=== PATIENT | male | born 1965 | race Caucasian/White ===

== ENCOUNTER 2018-03-28 16:57 | Emergency (ER) | payer BC ==
[2018-03-28 17:26] VITALS: BP 157/93; PULSE 85; RESP 16; TEMP 98.5
[2018-03-28] MEDS ORDERED: DIPH,PERTUS(ACELL)TETVAC-LF 0.5 ML VIAL IM ONE (17:40)
[2018-03-28] MEDS ORDERED: LIDOCAINE 1%-EPI 1:100,000 30 ML VIAL SQ STA (17:42)
--- NOTE | 2018-03-28 18:08 | CT ---
EXAMINATION TYPE: CT brain wo con DATE OF EXAM: 03/28/2018 COMPARISON: NONE HISTORY: Frontal laceration. Hit with board today. CT DLP: 1080.3 mGycm. Automated Exposure Control for Dose Reduction was Utilized. TECHNIQUE: CT scan of the head is performed without contrast. FINDINGS: A frontal large laceration is seen with subcutaneous emphysema and a small degree of overly ing soft tissue swelling. There is no acute intracranial hemorrhage, mass effect, or midline shift i dentified. The ventricles and sulci are symmetrically mildly prominent compatible with mild age-rela mello volume loss. Few scattered areas of hypoattenuation are seen within the subcortical and periventr icular white matter, likely on the basis of chronic microangiopathy. The globes are intact and the vi sualized sinuses are clear. IMPRESSION: No acute intracranial process. Frontal laceration with right frontal subcutaneous emphys campos and soft tissue swelling.
--- NOTE | 2018-03-28 18:11 | ED ---
General Adult HPI - General Source: patient, RN notes reviewed Mode of arrival: wheelchair Limitations: no limitations <Roman Cook - Last Filed: 03/28/18 19:58> <Kristy Aldana - Last Filed: 03/28/18 20:33> - General Chief complaint: Wound/Laceration Stated complaint: Head Laceration Time Seen by Provider: 03/28/18 17:32 - History of Present Illness Initial comments: 52-year-old male presented to the emergency room today with a chief complaint of a laceration to the forehead. Patient states that he was working when a large bore fell down from the bar and hit him striking him on the forehead causing laceration. He states unsure of his tetanus status. States his visual loss conscious. He denies any headache. He denies any other complaints or symptoms. Patient denies any recent fever, chills, shortness of breath, chest pain, back pain, abdominal pain, nausea or vomiting, numbness or tingling, headaches or visual changes, or any other complaints. (Roman Cook) - Related Data Previous Rx's Medication Instructions Recorded Cephalexin [Keflex] 500 mg PO Q12HR #14 cap 03/28/18 Allergies Allergy/AdvReac Type Severity Reaction Status Date / Time No Known Allergies Allergy Verified 03/28/18 17:57 Review of Systems ROS Other: All systems not noted in ROS Statement are negative. <Roman Cook - Last Filed: 03/28/18 19:58> ROS Other: All systems not noted in ROS Statement are negative. <Kristy Aldana - Last Filed: 03/28/18 20:33> ROS Statement: Those systems with pertinent positive or pertinent negative responses have been documented in the HPI. Past Medical History Past Medical History: Hypertension History of Any Multi-Drug Resistant Organisms: None Reported Past Surgical History: No Surgical Hx Reported Past Psychological History: No Psychological Hx Reported Smoking Status: Never smoker Past Alcohol Use History: None Reported Past Drug Use History: Marijuana <Roman Cook - Last Filed: 03/28/18 19:58> General Exam Limitations: no limitations <Roman Cook - Last Filed: 03/28/18 19:58> - General Exam Comments Initial Comments: General: The patient is awake and alert, in no distress, and does not appear acutely ill. Eye: Pupils are equal, round and reactive to light. Extra-ocular movements are intact. No nystagmus. There is normal conjunctiva bilaterally. No signs of icterus. Ears, nose, mouth and throat: There are moist mucous membranes and no oral lesions. Neck: The neck is supple, there is no tenderness or JVD. Cardiovascular: There is a regular rate and rhythm. No murmur, rub or gallop is appreciated. Respiratory: Lungs are clear to auscultation, respirations are non-labored, breath sounds are equal. No wheezes, stridor, rales, or rhonchi. Musculoskeletal: Normal ROM, no tenderness. Sensation intact. Neurological: A&O x 3. CN II-XII intact, There are no obvious motor or sensory deficits. Coordination appears grossly intact. Speech is normal. Skin: Patient does have a laceration to the top of foreign. There is no active bleeding. Psychiatric: Cooperative, appropriate mood & affect, normal judgment. (Roman Cook) Vital Signs 03/28/18 17:24 Temperature 98.5 F Pulse Rate 85 Respiratory 16 Rate Blood Pressure 157/93 O2 Sat by Pulse 97 Oximetry Procedures - Laceration Laceration #1 Consent Obtained: verbal consent Time Out Performed: Yes Indication: laceration Site: scalp, face Size (cm): 13 Description: linear, clean Depth: simple, single layer Sedation/Analgesia: none Anesthetic Used: lidocaine 1%, with epi Anesthesia Technique: local infiltration Amount (mls): 20 Pre-repair: wound explored, irrigated extensively Type of Sutures: nylon, vicryl Size of Sutures: 4-0, 5-0 Number of Sutures: 6 (3 subQ, 6 simple interrupted, 8 evaristo) Technique: simple, interrupted Patient Tolerated Procedure: well, no complications <Kristy Aldana - Last Filed: 03/28/18 20:33> Medical Decision Making <Roman Cook - Last Filed: 03/28/18 19:58> <Kristy Aldana - Last Filed: 03/28/18 20:33> - Medical Decision Making Patient's CT of the head is reviewed and does show evidence for soft tissue injury with subcutaneous emphysema. No other acute abnormality. Results were discussed with the patient. His tetanus is been updated here the emergency room. The laceration was cleaned heavily with saline irrigated and closed with both evaristo and sutures. Patient will be started on a antibiotic to cover for infection prophylactically. Patient is advised to return in one week to have sutures removed. Advised return for any other concerns. (Roman Cook) Disposition Is patient prescribed a controlled substance at d/c from ED?: No Time of Disposition: 19:59 <Roman Cook - Last Filed: 03/28/18 19:58> <Kristy Aldana - Last Filed: 03/28/18 20:33> Clinical Impression: Laceration, Head injury Disposition: HOME SELF-CARE Condition: Good Instructions: Laceration (ED) Additional Instructions: Please return to the emergency room in 8-10 days to have sutures removed. Please watch for any signs of infection which may include increased pain, swelling, redness, fever or chills. Please return to emergency room for any signs of infection do occur. Please use clean soap and water over the area to prevent scabbing over your stitches. Please leave wound covered for the first 24-48 hours and then leave wound open to air. Please return to the emergency room for any other concerns. Prescriptions: Cephalexin [Keflex] 500 mg PO Q12HR #14 cap Referrals: Delfin Garcia MD [Primary Care Provider] - 1-2 days
== END 2018-03-28 20:25 | disposition home or self-care (01) ==
LOC: EC 16:57
DX: S01.01XA Laceration without foreign body of scalp, initial encounter (principal); T79.7XXA Traumatic subcutaneous emphysema, initial encounter; I10 Essential (primary) hypertension; Z23 Encounter for immunization; W20.8XXA Other cause of strike by thrown, projected or falling object, initial encounter; Y92.69 Other specified industrial and construction area as the place of occurrence of the external cause; Y99.0 Civilian activity done for income or pay
CPT/HCPCS: 12005; 70450; 90471; 90715; 99283

== ENCOUNTER → 2021-11-28 | Outpatient (CLI) | payer OTHER ==
--- NOTE | 2021-11-28 18:33 | CONS ---
CONSULTATION DATE OF SERVICE: 11/28/2021 This 56-year-old gentleman has been evaluated in [facility] for possible obstructive sleep apnea-hypopnea syndrome. HISTORY OF PRESENT ILLNESS/SLEEP-WAKE EVALUATION: Patient's usual sleep schedule on weekdays is from 10 p.m. to 5 a.m. and on weekends from 10 or 11 p.m. to 6 or 7 a.m. Usually no problems with falling asleep. No TV in bedroom. The patient usually sleeps on the side position. He snores and wakes up from sleep two times with nocturia. In the morning the patient wakes up tired. He usually does not take naps. [place] Sleepiness Scale is 1. No history of hypnagogic hallucinations, sleep paralysis or cataplexy. PAST MEDICAL HISTORY: Positive for hypertension and hyperlipidemia. PAST SURGICAL HISTORY: None. FAMILY HISTORY: Patient stated no family history. REVIEW OF SYSTEMS: Multiple awakenings from sleep, snoring, feeling tiredness during the day. No fevers. No double vision. No recent chest pain. No shortness of breath. No abdominal pain. No bleeding episodes. No blood in the urine. No seizure episodes. MEDICATIONS: Lisinopril 10 mg once a day, Pravachol 80 mg once a day. SOCIAL HISTORY: Negative for smoking. Alcohol consumption rarely. PHYSICAL EXAMINATION: GENERAL: Pleasant gentleman without distress. VITAL SIGNS: BP 139/87, HR 63, RR 16, height 5 feet 8-3/4 inches, weight 281.6, body mass index 41.8, temperature 97.9, oxygen saturation at room air 96%. HEENT: PERRLA, EOMI, evaluation of oropharynx showed tongue protrudes midline. Extremely low position of soft palate; Mallampati IV. NECK: Supple, no JVD. Thyroid is not palpable. Neck is wide; 19-1/4 inches in circumference. LUNGS: Clear to percussion and to auscultation. Good air exchange. No wheezing or rhonchi. HEART: S1, S2 regular. No murmurs, gallops, or rubs. ABDOMEN: Obese. EXTREMITIES: No clubbing or cyanosis. CAN LABELER: Awake, alert, and oriented X3. Cranial nerves 2 to 7 intact. There is no fasciculation or atrophy. noted. No focal deficits observed. IMPRESSION: 1. Snoring, multiple awakenings from sleep with nocturia, extremely low position of soft palate, Mallampati IV, wide neck, 19-1/4 inches in circumference; obstructive sleep apnea-hypopnea syndrome. 2. Obesity; BMI 41.8. 3. Hypertension. 4. Hyperlipidemia. PLAN: 1. Polysomnography for evaluation of patient's breathing during sleep. 2. CPAP/BiPAP titration if sleep study confirms obstructive sleep apnea-hypopnea syndrome. 3. Preferable position during sleep on the side. 4. No driving if patient feels any sleepiness. 5. I will see patient for follow up visit to explain results of testing and following plan. Thank you very much for referring this patient for consultation. Sincerely, Joel Ibanez MD, PhD, FAASM Diplomat of [employer] Sleep Medicine [employer] of [place] [employer] [facility] [place] MMODL / GADIELN: [id number] /
== END | disposition home or self-care (01) ==
LOC: SLEEP 15:52
PROVIDERS: ATTEND Internal Medicine
DX: G47.33 Obstructive sleep apnea (adult) (pediatric) (principal); E66.9 Obesity, unspecified; I10 Essential (primary) hypertension; E78.5 Hyperlipidemia, unspecified; Z68.41 Body mass index [BMI] 40.0-44.9, adult
CPT/HCPCS: 99202